=== PATIENT | female | born 1940 | race African-American/Black ===

== ENCOUNTER 2018-08-31 06:33 | Day surgery (SDC) | payer OTHER ==
[2018-08-31 07:28] VITALS: BMI 18.7
[2018-08-31 09:53] VITALS: TEMP 97.5
[2018-08-31 11:00] VITALS: BP 113/52; PULSE 60
--- NOTE | 2018-09-03 16:18 | PATH ---
Surgical Pathology Report Patient Name: JYOTSNA HARDY [facility]. Rec. #: [id number] /Age/Gender: 1940 (Age: 78) / F Account: [id number] Location: [facility]-ENDOSCOPY Taken: 08/31/2018 Received: 08/31/2018 Reported: 09/03/2018 Physicians: Truong Velez M.D. Specimen(s) Received A: 2ND PORTION DUODENUM AND DUODENAL BULB B: ANTRUM C: MID TRANSVERSE COLON D: RIGHT COLON E: PROXIMAL TRANSVERSE COLON Clinical History Occult GI bleed, weight loss Postoperative diagnosis: Hiatal hernia, colon diverticuli, colon polyps Final Diagnosis A. SECOND PORTION DUODENUM AND DUODENUM BULB, BIOPSY: DUODENAL MUCOSA WITH NO SIGNIFICANT PATHOLOGIC CHANGES. NO HISTOLOGIC EVIDENCE OF CELIAC DISEASE. B. ANTRUM, BIOPSY: GASTRIC MUCOSA WITH MILD CHRONIC GASTRITIS. IMMUNOSTAIN FOR H. PYLORI IS NEGATIVE. NEGATIVE FOR INTESTINAL METAPLASIA. C. MID TRANSVERSE COLON POLYP, POLYPECTOMY: TUBULAR ADENOMA.: D. RIGHT COLON POLYP, POLYPECTOMY: TUBULAR ADENOMA. E. PROXIMAL TRANSVERSE COLON POLYP, POLYPECTOMY: TUBULAR ADENOMA. Electronically Signed Johnny Ryan M.D. Gross Description A. Received in formalin, labeled "biopsy second portion of duodenum and bulb" are 3 stevens, irregular portions of soft tissue ranging from 0.1-0.3 cm. in greatest dimension. The specimens are submitted in toto in one cassette. B. Received in formalin, labeled "biopsy antrum" are 2 stevens, irregular portions of soft tissue measuring 0.3 and 0.5 cm. in greatest dimension. The specimens are submitted in toto in one cassette. C. Received in formalin, labeled "biopsy mid transverse colon polyp" are 4 stevens, irregular portions of soft tissue ranging from 0.2-0.3 cm. in greatest dimension. The specimens are submitted in toto in one cassette. D. Received in formalin, labeled "biopsy right colon polyp" are 4 stevens, irregular portions of soft tissue ranging from 0.1-0.2 cm. in greatest dimension. The specimens are submitted in toto in one cassette. E. Received in formalin, labeled "biopsy proximal transverse colon polyp" are 5 stevens, irregular portions of soft tissue ranging from 0.1-0.2 cm. in greatest dimension. The specimens are submitted in toto in one cassette. /08/31/2018 saudi08/31/2018
== END 2018-08-31 10:59 | disposition home or self-care (01) ==
LOC: JASU-ENDO 06:33
PROVIDERS: ATTEND Internal Medicine Gastroenterology
PROC: 0DBL8ZX Excision of Transverse Colon, Via Natural or Artificial Opening Endoscopic, Diagnostic (ICD-10-PCS; 2018-08-31)
PROC: 0DB68ZX Excision of Stomach, Via Natural or Artificial Opening Endoscopic, Diagnostic (ICD-10-PCS; 2018-08-31)
PROC: 0DBK8ZX Excision of Ascending Colon, Via Natural or Artificial Opening Endoscopic, Diagnostic (ICD-10-PCS; principal; 2018-08-31 08:45)
DX: Z12.11 Encounter for screening for malignant neoplasm of colon (principal); D12.2 Benign neoplasm of ascending colon; D12.3 Benign neoplasm of transverse colon; K57.30 Diverticulosis of large intestine without perforation or abscess without bleeding; K44.9 Diaphragmatic hernia without obstruction or gangrene; R63.4 Abnormal weight loss
CPT/HCPCS: 88305-TC; 88342-TC

== ENCOUNTER 2021-02-16 04:15 | Day surgery (SDC) | payer OTHER ==
[2021-02-12 17:41] VITALS: BMI 20.1
[2021-02-16] MEDS ORDERED: ceFAZolin SODIUM 1 GM VIAL ONE (10:47)
[2021-02-16] MEDS ORDERED: ceFAZolin SODIUM 1 GM VIAL IVPB ONE (10:50)
[2021-02-16 14:16] VITALS: BP 140/62; PULSE 98; TEMP 97.3
== END 2021-02-16 13:00 | disposition home or self-care (01) ==
LOC: JASU-SURG 04:15
PROVIDERS: ATTEND Urology
PROC: 0TF3XZZ Fragmentation in Right Kidney Pelvis, External Approach (ICD-10-PCS; principal; 2021-02-16 11:15)
DX: N20.0 Calculus of kidney (principal); I10 Essential (primary) hypertension; E11.9 Type 2 diabetes mellitus without complications; J44.9 Chronic obstructive pulmonary disease, unspecified